=== PATIENT | male | born 2000 | race Asian ===

== ENCOUNTER 2022-05-14 19:31 | Emergency (ER) | payer SELFPAY ==
[2022-05-14 20:17] LABS: #Eosinphils 0.2 thou/uL (0.0-0.7); #Lymphocytes 1.8 thou/uL (1.20-3.40); #Monocytes 0.4 thou/uL (0.11-0.59); #Neutrophils 5.7 thou/uL (1.40-6.50); %Basophils 0.3 % (0.0-1.0); %Eosinophils 2.4 % (0.0-10.0); %Lymphocytes 22.4 % (21.0-51.0); %Monocytes 4.6 % (0.0-10.0); %Neutrophils 70.3 % (42.0-75.0); Hemoglobin 15.4 g/dL (14.0-18.0); Mean Corpuscular HGB CONC 35.5 g/dL (32.0-36.0); Mean Corpuscular Hemoglobin 30.4 pg (27.0-31.0); Mean Corpuscular Volume 85.7 fL (78.0-98.0); Mean Platelet Volume 7.5 fL (7.4-10.4); Platelet Count 215 thou/uL (130-400); RBC Distribution Width 10.8 % (11.5-14.5); Red Blood Cell (RBC) Count 5.06 mill/uL (4.70-6.10); White Blood Cell (WBC) Count 8.1 thou/uL (4.8-10.8)
[2022-05-14 20:44] LABS: ALT (SGPT) 23 U/L (8-55); AST (SGOT) 20 U/L (5-34); Albumin 4.3 g/dL (3.5-5.0); Alkaline Phosphatase 73 U/L (40-110); Anion Gap 14 mmol/L (10-20); BUN (Urea Nitrogen) 10 mg/dL (8.9-20.6); Bilirubin, Total 0.8 mg/dL (0.2-1.2); Calc. Creatinine Clearance 0 mL/min (70-130); Calcium 9.4 mg/dL (7.8-10.44); Carbon Dioxide 24 mmol/L (22-29); Chloride 106 mmol/L (98-107); Estimated GFR 115; Globulin 3.2 g/dL (2.4-3.5); Glucose 114 mg/dL (70-105); Potassium 3.5 mmol/L (3.5-5.1); Protein, Total 7.5 g/dL (6.0-8.3); Sodium 140 mmol/L (136-145)
[2022-05-14] MEDS ORDERED: Boostrix 0.5 ML (Tdap) VIAL ONE (20:48)
[2022-05-14] MEDS ORDERED: Lidocaine 4% Cream 5 GM TUBE w/ Tegaderm ONE (20:48)
[2022-05-14] MEDS ORDERED: Acetaminophen 500 MG TAB ONE (22:29)
== END 2022-05-15 00:30 | disposition home or self-care (01) ==
LOC: ERS 19:31
DX: S06.0X1A Concussion with loss of consciousness of 30 minutes or less, initial encounter (principal); S02.5XXA Fracture of tooth (traumatic), initial encounter for closed fracture; S01.111A Laceration without foreign body of right eyelid and periocular area, initial encounter; W19.XXXA Unspecified fall, initial encounter
CPT/HCPCS: 12011; 70450; 70486; 72125; 80053; 85025; 90471; 90715